=== PATIENT | female | born 1995 ===

== ENCOUNTER 2018-12-06 01:25 | Emergency (ER) | payer OTHER ==
[2018-12-06 01:45] VITALS: BP 132/70
--- NOTE | 2018-12-06 02:15 | XRay Report ---
RIGHT KNEE 3 VIEWS INDICATION: MAIN: PT SD WAS GARDENING AND HIT HER KNEE WITH A HAMMER X1 DAY..JTS. COMPARISON: No relevant prior imaging study available. FINDINGS: No acute fracture or dislocation is seen. No soft tissue gas or foreign bodies. No degenerative de la rosa es. IMPRESSION: 1. No acute findings. Signer Name: Shantanu Wilson MD Signed: 12/06/2018 2:11 AM Workstation Name: [email or web address]
[2018-12-06] MEDS ORDERED: IBUPROFEN PO ONE (02:50)
--- NOTE | 2018-12-06 03:00 | Emergency Department Report ---
ED Extremity Problem HPI - General Chief complaint: Extremity Injury, Lower Stated complaint: RIGHT KNEE PAIN Time Seen by Provider: 12/06/18 02:50 Source: patient Mode of arrival: Ambulatory Limitations: No Limitations - History of Present Illness Initial comments: Patient accidentally hit himself in the right knee with a hammer complaining of right knee pain, no swelling or redness. Complaint of pain is worse with range of motion. Rates pain as severe in severity. MD Complaint: extremity pain Onset/Timin -: days(s) Location: right, lower extremity History of Same: No Radiation: none Severity scale (0 -10): 6 Quality: stabbing Consistency: constant Improves with: immobilization Worsens with: weight bearing, walking - Related Data Previous Rx's Medication Instructions Recorded Last Taken Type Ibuprofen [Motrin] 800 mg PO Q8HR PRN #15 tablet 12/06/18 Unknown Rx Allergies Allergy/AdvReac Type Severity Reaction Status Date / Time No Known Allergies Allergy Verified 12/06/18 01:42 ED Review of Systems ROS: Stated complaint: RIGHT KNEE PAIN Other details as noted in HPI Comment: All other systems reviewed and negative Eyes: denies: eye pain Respiratory: denies: cough Cardiovascular: denies: chest pain, palpitations Musculoskeletal: joint swelling ED Past Medical Hx - Past Medical History Previous Medical History?: No - Surgical History Past Surgical History?: Yes Additional Surgical History: - Social History Smoking Status: Current Every Day Smoker Substance Use Type: None - Medications Home Medications: Home Medications Medication Instructions Recorded Confirmed Last Taken Type Ibuprofen [Motrin] 800 mg PO Q8HR PRN #15 tablet 12/06/18 Unknown Rx ED Physical Exam - General Limitations: No Limitations General appearance: alert, in no apparent distress - Head Head exam: Present: atraumatic, normocephalic - Eye Eye exam: Present: normal appearance, PERRL, EOMI Pupils: Present: normal accommodation - ENT ENT exam: Present: normal exam, normal orophraynx - Neck Neck exam: Present: normal inspection - Respiratory Respiratory exam: Present: normal lung sounds bilaterally - Cardiovascular Cardiovascular Exam: Present: regular rate, normal rhythm - GI/Abdominal GI/Abdominal exam: Present: soft, normal bowel sounds - Extremities Exam Extremities exam: Present: tenderness (right knee) ED Course Vital Signs 12/06/18 01:42 Temperature 97.8 F Pulse Rate 80 Respiratory 18 Rate Blood Pressure 132/70 [Right] O2 Sat by Pulse 99 Oximetry Critical care attestation.: If time is entered above; I have spent that time in minutes in the direct care of this critically ill patient, excluding procedure time. ED Disposition Clinical Impression: Contusion of right knee Qualifiers: Encounter type: initial encounter Qualified Code(s): S80.01XA - Contusion of right knee, initial encounter Disposition: TO HOME OR SELFCARE Is pt being admited?: No Does the pt Need Aspirin: No Condition: Stable Instructions: Contusion in Adults (ED), Knee Pain (ED) Prescriptions: Ibuprofen [Motrin] 800 mg PO Q8HR PRN #15 tablet PRN Reason: Pain , Severe (7-10) Referrals: DANNIE CARRASQUILLO MD [Primary Care Provider] - 3-5 Days
== END 2018-12-06 04:21 | disposition home or self-care (01) ==
LOC: ED 01:25
DX: S80.01XA Contusion of right knee, initial encounter (principal); F17.200 Nicotine dependence, unspecified, uncomplicated; Z79.1 Long term (current) use of non-steroidal anti-inflammatories (NSAID); X58.XXXA Exposure to other specified factors, initial encounter; Y93.89 Activity, other specified; Y92.89 Other specified places as the place of occurrence of the external cause; Y99.8 Other external cause status